=== PATIENT | female | born 1960 | race Caucasian/White ===

== ENCOUNTER 2022-02-15 09:24 | Emergency (ER) | payer OTHER ==
[~2022-02-15] VITALS: Ht 165.1 cm; Wt 77.0 kg
[2022-02-15] MEDS ORDERED: ZPAK PO (11:13)
[2022-02-15 11:22] VITALS: BP 165/103
== END 2022-02-15 11:39 | disposition home or self-care (01) | DRG 153 ==
LOC: ED 09:24
DX: J06.9 Acute upper respiratory infection, unspecified (principal); B97.4 Respiratory syncytial virus as the cause of diseases classified elsewhere; Z20.822 Contact with and (suspected) exposure to COVID-19